=== PATIENT | male | born 1980 | race Caucasian/White ===

== ENCOUNTER 2016-04-30 11:20 | Inpatient (IN) | payer OTHER ==
[2016-04-30 11:59] VITALS: BMI 24.3
--- NOTE | 2016-04-30 12:58 | HP ---
Admission ROS [facility] Chief Complaint: REHAB TX FOR ALCOHOL,XANAX AND MARIJUANA DEPENDENCE Allergies/Adverse Reactions: Allergies Allergy/AdvReac Type Severity Reaction Status Date / Time Penicillins Allergy Severe Nausea Verified 04/30/16 13:14 shellfish derived Allergy Severe Nausea Verified 04/30/16 13:14 History of Present Illness: 35 Y/O H/M WITH A HX OF ALCOHOL, XANAX ,MARIJUANA DEPENDENCE SEEKING REHAB TX. PT WAS D/C'D FROM [facility] TODAY AND REFERRED TO AFTERCARE- REHAB. Exam Limitations: No Limitations - Ebola screening Have you traveled outside of the country in the last 21 days: No Have you had contact with anyone from an Ebola affected area: No Have you been sick,other than usual withdrawal symptoms: No Do you have a fever: No - Review of Systems Constitutional: Changes in sleep, Unintentional Wgt. Loss EENT: reports: No Symptoms Reported Respiratory: reports: No Symptoms reported Cardiac: reports: No Symptoms Reported GI: reports: No Symptoms Reported : reports: No Symptoms Reported Musculoskeletal: reports: No Symptoms Reported Integumentary: reports: No Symptoms Reported Neuro: reports: Numbness, Tingling Endocrine: reports: No Symptoms Reported Hematology: reports: No Symptoms Reported Psychiatric: reports: Orientated x3, Anxious, Depressed (BUT NOT DIAGNOSED YET. PT HAS A TALK THERAPY.) Other Systems: Reviewed and Negative Patient History - Patient Medical History Hx Anemia: No Hx Asthma: No Hx Chronic Obstructive Pulmonary Disease (COPD): No Hx Cardiac Disorders: Yes (HX CARDIAC MURMUR) Hx Hypertension: Yes (NONCOMPLIANT WITH MED..STOPPED X 10 YRS. TODAY AY=274/109( R); 168/102(L)) Hx Hypercholesterolemia: No HX Cerebrovascular Accident: No Hx Seizures: No Hx Diabetes: No Hx Gastrointestinal Disorders: No Hx Genitourinary Disorders: No Hx Sexually Transmitted Disorders: No Hx Renal Disease (ESRD): No Hx Thyroid Disease: No Hx Human Immunodeficiency Virus (HIV): No (NEGATIVE HX, LAST TAKEN ON 04/19/16) Hx Hepatitis C: No Hx Depression: Yes (NO MEDS; TALK THERAPY ONLY) Hx Suicide Attempt: No (DENIES) Hx Bipolar Disorder: No Hx Schizophrenia: No Other Medical History: UNABLE TO REMEMBER WHAT HE WAS TAKING FOR HTN. - Patient Surgical History Past Surgical History: Yes Hx Neurologic Surgery: No Hx Cataract Extraction: No Hx Cardiac Surgery: No Hx Lung Surgery: No Hx Breast Surgery: No Hx Breast Biopsy: No Hx Abdominal Surgery: No Hx Appendectomy: No Hx Cholecystectomy: No Hx Genitourinary Surgery: No Hx Orthopedic Surgery: No Other Surgical History: SX DUE TO LUMP ON NECK A CHILD;COLOSCOPY WITH POLYPECTOMY AT 22 YRS. Anesthesia Reaction: No - PPD History Previous Implant?: Yes Documented Results: Negative w/o proof Implanted On Prior [facility] Admission?: No PPD to be Administered?: Yes - Reproductive History Patient is a Female of Child Bearing Age (11 -55 yrs old): No (MALE) - Smoking Cessation Smoking history: Current every day smoker Have you smoked in the past 12 months: Yes Aproximately how many cigarettes per day: 6 Hx Chewing Tobacco Use: No Initiated information on smoking cessation: Yes 'Breaking Loose' booklet given: 04/30/16 - Substance & Tx. History Hx Alcohol Use: Yes (BEER) Hx Substance Use: Yes (XANAX) Substance Use Type: Alcohol, Marijuana, Tranquilizers Hx Substance Use Treatment: Yes - Substances Abused Alcohol Route: Oral Frequency: Daily Amount used: 1/2 PT/ 75 OZ Age of first use: 20 Date of Last Use: 04/26/16 Alprazolam (Xanax) Route: Oral Frequency: 3-6 times per week (2-3X/WEEK) Amount used: 2MG Age of first use: 33 Date of Last Use: 04/25/16 Marijuana/Hashish Route: Smoking Frequency: Daily Amount used: 7-8 BLUNTS Age of first use: 19 Date of Last Use: 04/26/16 Family Disease History - Family Disease History Family Disease History: Diabetes: Mother, Heart Disease: Grandparent (STROKE- LAST MONTH), Respiratory: Brother (ASTHMA), Other: Father (HTN) Other Family History: ALCOHOLISM IN THE EXTENDED RELATIVES Admission Physical Exam BHS - Vital Signs Vital Signs: Vital Signs - 24 hr 04/30/16 11:56 Temperature 98.3 F Pulse Rate 80 Respiratory 20 Rate Blood Pressure 168/102 - Physical General Appearance: Yes: No Apparent Distress, Anxious HEENTM: Yes: EOMI, Normocephalic, FREDDY, Pharynx Normal, Nasal Congestion, Rhinorrhea Respiratory: Yes: Chest Non-Tender, Lungs Clear, Normal Breath Sounds, No Respiratory Distress Neck: Yes: Supple, Trachea in good position Breast: Yes: Breast Exam Deferred Cardiology: Yes: Regular Rhythm, Regular Rate, S1, S2 (NO MURMUR NOTED) Abdominal: Yes: Normal Bowel Sounds, Non Tender, Soft Genitourinary: Yes: Other (N/C) Musculoskeletal: Yes: full range of Motion, Gait Steady Extremities: Yes: Normal Range of Motion, Non-Tender Neurological: Yes: 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 NML intact, Fully Oriented, Alert, Motor Strength 5/5 Integumentary: Yes: Dry, Warm Lymphatic: Yes: Within Normal Limits - Diagnostic (1) Alcohol dependence with uncomplicated withdrawal Current Visit: Yes Status: Chronic (2) Sedative, hypnotic or anxiolytic dependence with withdrawal, uncomplicated Current Visit: Yes Status: Chronic (3) Cannabis dependence, uncomplicated Current Visit: Yes Status: Chronic (4) Hypertension Current Visit: Yes Status: Chronic Qualifiers: Hypertension type: essential hypertension Qualified Code(s): I10 - Essential (primary) hypertension (5) Hx of cardiac murmur Current Visit: Yes Status: Suspected Cleared for Admission [facility] - Detox or Rehab Claeared for Rehab Admission: Yes [facility] Breath Alcohol Content Breath Alcohol Content: 0 Urine Drug Screen - Results Drug Screen Negative: No Urine Drug Screen Results: THC-Marijuana, BZO-Benzodiazepines
[2016-04-30] MEDS ORDERED: IBUPROFEN 400 MG TABLET (FP) PO PRN (13:25)
[2016-04-30] MEDS ORDERED: MAGNESIUM HYDROX 2400MG/30ML ORAL SUSPENSION 30 ML CUP PO PRN (13:25)
[2016-04-30] MEDS ORDERED: NICOTINE POLACRILEX 2 MG GUM BUC PRN (13:25)
[2016-04-30] MEDS ORDERED: MAG HYDROX/AL HYDROX/SIMETH 30 ML UNIT-DOSE CUP PO PRN (13:25)
[2016-04-30] MEDS ORDERED: P-EPHED 60MG/TRIPROLIDI 2.5MG TABLET PO PRN (13:25)
[2016-04-30] MEDS ORDERED: hydrOXYzine PAMOATE 25 MG CAPSULE (FP) PO PRN (13:25)
[2016-04-30] MEDS ORDERED: LOPERAMIDE HCL 2 MG CAPSULE PO PRN (13:25)
[2016-04-30] MEDS ORDERED: MAGNESIUM CITRATE 300 ML BOTTLE PO PRN (13:25)
[2016-04-30] MEDS ORDERED: MENTHOL/PHENOL 1 EACH UD MM PRN (13:25)
[2016-04-30] MEDS ORDERED: ACETAMINOPHEN 325 MG TABLET (FP) PO PRN (13:25)
[2016-04-30] MEDS ORDERED: guaiFENesin/D-METHORPHAN HB 10 ML UNIT-DOSE CUPS PO PRN (13:25)
[2016-04-30] MEDS ORDERED: TUBERCULIN PPD 5 TU/0.1ML VIAL ID ONE (16:57)
[2016-04-30] MEDS: HYDROCHLOROTHIAZIDE 25 MG TABLET (FP) PO SCH (16:58)
[2016-04-30 20:58] LABS: URINE APPEARANCE CLEAR; URINE BILIRUBIN NEGATIVE (NEGATIVE); URINE BLOOD NEGATIVE (NEGATIVE); URINE COLOR YELLOW; URINE GLUCOSE (UA) NEGATIVE (NEGATIVE); URINE KETONE NEGATIVE (NEGATIVE); URINE LEUK ESTERASE NEGATIVE (NEGATIVE); URINE NITRITE NEGATIVE (NEGATIVE); URINE PROTEIN NEGATIVE (NEGATIVE); URINE UROBILINOGEN NEGATIVE E.U./dl (0.2-1.0)
[2016-04-30] MEDS: THIAMINE HCL 100 MG TABLET (FP) PO SCH (22:01)
--- NOTE | 2016-05-01 09:34 | EKG ---
Test Reason : Blood Pressure : / mmHG Vent. Rate : 062 BPM Atrial Rate : 062 BPM P-R Int : 142 ms QRS Dur : 100 ms QT Int : 416 ms P-R-T Axes : -03 065 038 degrees QTc Int : 422 ms NORMAL SINUS RHYTHM WITH SINUS ARRHYTHMIA EARLY REPOLARIZATION NO PREVIOUS ECGS AVAILABLE Confirmed by SNOW WANG MD ([id number]) on 05/01/2016 9:33:49 AM Referred By: Confirmed By:SNOW WANG MD
[2016-05-01] MEDS: PRENATAL VITAMINS W/ FOLIC ACID TABLET (FP) PO SCH (09:40)
[2016-05-01] MEDS: NICOTINE 14 MG/24 HOURS TOPICAL PATCH TD SCH (09:40)
[2016-05-01] MEDS: ASPIRIN 81 MG CHEWABLE TABLETS PO SCH (09:40)
[2016-05-01] MEDS: HYDROCHLOROTHIAZIDE 25 MG TABLET (FP) PO SCH (09:40)
[2016-05-01 10:28] LABS: MCH 28.2 pg (25.7-33.7); MCHC 32.2 g/dl (32.0-35.9); MEAN CELL VOLUME 87.8 fl (80-96); PLATELET COUNT 237 K/MM3 (134-434); RDW 14.5 % (11.9-15.9)
[2016-05-01 11:49] LABS: SICKLE CELL SCREEN NEGATIVE (NEGATIVE)
[2016-05-01 12:06] LABS: ALBUMIN 4.1 g/dl (3.4-5.0); ALK PHOS 73 U/L (45-117); ANION GAP 11 (8-16); BILIRUBIN,TOTAL 0.5 mg/dL (0.2-1.0); CALCIUM 9.1 mg/dL (8.5-10.1); CO2 25 mmol/L (21-32); CREATININE 1.1 mg/dL (0.7-1.3); GLUCOSE,RANDOM 92 mg/dL (74-106); SGOT/AST 23 U/L (15-37); SGPT/ALT 27 U/L (12-78); TOT PROT 7.1 g/dl (6.4-8.2)
[2016-05-01] MEDS: THIAMINE HCL 100 MG TABLET (FP) PO SCH (21:35)
[2016-05-02] MEDS: ASPIRIN 81 MG CHEWABLE TABLETS PO SCH (09:41)
[2016-05-02] MEDS: NICOTINE 14 MG/24 HOURS TOPICAL PATCH TD SCH (09:41)
[2016-05-02] MEDS: HYDROCHLOROTHIAZIDE 25 MG TABLET (FP) PO SCH (09:41)
[2016-05-02] MEDS: PRENATAL VITAMINS W/ FOLIC ACID TABLET (FP) PO SCH (09:41)
[2016-05-02] MEDS: THIAMINE HCL 100 MG TABLET (FP) PO SCH (21:26)
[2016-05-03] MEDS: HYDROCHLOROTHIAZIDE 25 MG TABLET (FP) PO SCH (10:11)
[2016-05-03] MEDS: PRENATAL VITAMINS W/ FOLIC ACID TABLET (FP) PO SCH (10:11)
[2016-05-03] MEDS: NICOTINE 14 MG/24 HOURS TOPICAL PATCH TD SCH (10:11)
[2016-05-03] MEDS: ASPIRIN 81 MG CHEWABLE TABLETS PO SCH (10:11)
--- NOTE | 2016-05-03 14:01 | HP ---
Psychiatrist Admission - Data Date of interview: 05/03/16 Admission source: [facility] Identifying data: This is the first 5N inpatient rehabilitation admission for this 35 year old male father of 2, employed party plan sales host/hostess and residing in [place]. Medical History: hypertension, heart murmur and polypectomy at age 22, smoks cigarettes 4-6 daily Psychiatric History: patient reports was seen by a psychiatrist prior to his therapy, no mediations were recommended, states he had only a few session to address his adddiction. Physical/Sexual Abuse/Trauma History: denies history of sexual, physical and verbal abuse. Vital Signs: Vital Signs - 24 hr 05/03/16 05/03/16 05/03/16 00:30 03:26 07:53 Temperature 97.0 F L Pulse Rate 55 L Respiratory 16 16 18 Rate Blood Pressure 153/89 Allergies/Adverse Reactions: Allergies Allergy/AdvReac Type Severity Reaction Status Date / Time Penicillins Allergy Severe Nausea Verified 04/30/16 13:14 shellfish derived Allergy Severe Nausea Verified 04/30/16 13:14 Date of last physical exam: 04/30/16 Concur with the findings of this exam: Yes - Substance Abuse/Tx History Hx Alcohol Use: Yes (75 oz beer dailky, 1/2 pint of vodka daily ) Hx Substance Use: Yes Substance Use Type: Marijuana (daily use), Tranquilizers (xanax 2 mg 2-3 times a week) Hx Substance Use Treatment: No (first rehabilitation treatment) - Admission Criteria Previous failed treatment: No Poor recovery environment: Yes Comorbidities: Yes Lacks judgement: Yes Mental Status Exam - Mental Status Exam Cognitive Function: Fair Patient Appearance: Well Groomed Mood: Hopeful Affect: Appropriate Patient Behavior: Appropriate, Cooperative Speech Pattern: Clear, Appropriate Voice Loudness: Normal Thought Process: Intact, Goal Oriented Hallucinations: None Suicidal Ideation: Denies Homicidal Ideation: Denies Insight/Judgement: Fair Sleep: Fair Appetite: Fair Muscle strength/Tone: Normal Gait/Station: Normal Psychiatric Findings - Problem List ([place] 1, 2,3) (1) Alcohol dependence Current Visit: Yes Status: Acute (2) Cannabis dependence Current Visit: Yes Status: Acute (3) Nicotine dependence Current Visit: Yes Status: Acute (4) Sedative hypnotic or anxiolytic dependence Current Visit: Yes Status: Acute - Initial Treatment Plan Initial Treatment Plan: will monitor progress as needed.
[2016-05-03] MEDS: THIAMINE HCL 100 MG TABLET (FP) PO SCH (21:21)
[2016-05-04] MEDS: PRENATAL VITAMINS W/ FOLIC ACID TABLET (FP) PO SCH (10:25)
[2016-05-04] MEDS: NICOTINE 14 MG/24 HOURS TOPICAL PATCH TD SCH (10:26)
[2016-05-04] MEDS: ASPIRIN 81 MG CHEWABLE TABLETS PO SCH (10:26)
[2016-05-04] MEDS: HYDROCHLOROTHIAZIDE 25 MG TABLET (FP) PO SCH (10:26)
[2016-05-04] MEDS: THIAMINE HCL 100 MG TABLET (FP) PO SCH (21:18)
[2016-05-04] MEDS: diphenhydrAMINE HCL 50 MG CAPSULE PO PRN (21:18)
[2016-05-05] MEDS: HYDROCHLOROTHIAZIDE 25 MG TABLET (FP) PO SCH (10:15)
[2016-05-05] MEDS: ASPIRIN 81 MG CHEWABLE TABLETS PO SCH (10:15)
[2016-05-05] MEDS: NICOTINE 14 MG/24 HOURS TOPICAL PATCH TD SCH (10:15)
[2016-05-05] MEDS: PRENATAL VITAMINS W/ FOLIC ACID TABLET (FP) PO SCH (10:15)
[2016-05-05] MEDS ORDERED: amLODIPine BESYLATE 2.5 MG TABLET (FP) PO ONE (16:05)
[2016-05-05] MEDS: THIAMINE HCL 100 MG TABLET (FP) PO SCH (21:30)
[2016-05-06] MEDS: PRENATAL VITAMINS W/ FOLIC ACID TABLET (FP) PO SCH (10:03)
[2016-05-06] MEDS: amLODIPine BESYLATE 2.5 MG TABLET (FP) PO SCH (10:03)
[2016-05-06] MEDS: HYDROCHLOROTHIAZIDE 25 MG TABLET (FP) PO SCH (10:03)
[2016-05-06] MEDS: ASPIRIN 81 MG CHEWABLE TABLETS PO SCH (10:03)
[2016-05-06] MEDS: NICOTINE 14 MG/24 HOURS TOPICAL PATCH TD SCH (10:04)
[2016-05-06] MEDS: THIAMINE HCL 100 MG TABLET (FP) PO SCH (21:36)
[2016-05-06] MEDS: diphenhydrAMINE HCL 50 MG CAPSULE PO PRN (21:36)
[2016-05-07] MEDS: ASPIRIN 81 MG CHEWABLE TABLETS PO SCH (10:08)
[2016-05-07] MEDS: HYDROCHLOROTHIAZIDE 25 MG TABLET (FP) PO SCH (10:08)
[2016-05-07] MEDS: NICOTINE 14 MG/24 HOURS TOPICAL PATCH TD SCH (10:08)
[2016-05-07] MEDS: PRENATAL VITAMINS W/ FOLIC ACID TABLET (FP) PO SCH (10:08)
[2016-05-07] MEDS: amLODIPine BESYLATE 2.5 MG TABLET (FP) PO SCH (10:08)
[2016-05-07] MEDS: THIAMINE HCL 100 MG TABLET (FP) PO SCH (21:23)
[2016-05-07] MEDS: diphenhydrAMINE HCL 50 MG CAPSULE PO PRN (21:24)
[2016-05-08] MEDS: HYDROCHLOROTHIAZIDE 25 MG TABLET (FP) PO SCH (09:49)
[2016-05-08] MEDS: ASPIRIN 81 MG CHEWABLE TABLETS PO SCH (09:49)
[2016-05-08] MEDS: amLODIPine BESYLATE 5 MG TABLET (FP) PO SCH (09:50)
[2016-05-08] MEDS: NICOTINE 14 MG/24 HOURS TOPICAL PATCH TD SCH (09:50)
[2016-05-08] MEDS: PRENATAL VITAMINS W/ FOLIC ACID TABLET (FP) PO SCH (10:26)
[2016-05-08] MEDS: THIAMINE HCL 100 MG TABLET (FP) PO SCH (21:27)
[2016-05-08] MEDS: diphenhydrAMINE HCL 50 MG CAPSULE PO PRN (21:28)
[2016-05-09] MEDS: NICOTINE 14 MG/24 HOURS TOPICAL PATCH TD SCH (10:18)
[2016-05-09] MEDS: amLODIPine BESYLATE 5 MG TABLET (FP) PO SCH (10:18)
[2016-05-09] MEDS: PRENATAL VITAMINS W/ FOLIC ACID TABLET (FP) PO SCH (10:18)
[2016-05-09] MEDS: ASPIRIN 81 MG CHEWABLE TABLETS PO SCH (10:18)
[2016-05-09] MEDS: HYDROCHLOROTHIAZIDE 25 MG TABLET (FP) PO SCH (10:18)
[2016-05-09] MEDS: THIAMINE HCL 100 MG TABLET (FP) PO SCH (21:16)
[2016-05-09] MEDS: diphenhydrAMINE HCL 50 MG CAPSULE PO PRN (21:16)
[2016-05-10] MEDS: ASPIRIN 81 MG CHEWABLE TABLETS PO SCH (09:06)
[2016-05-10] MEDS: NICOTINE 14 MG/24 HOURS TOPICAL PATCH TD SCH (09:06)
[2016-05-10] MEDS: amLODIPine BESYLATE 5 MG TABLET (FP) PO SCH (09:06)
[2016-05-10] MEDS: HYDROCHLOROTHIAZIDE 25 MG TABLET (FP) PO SCH (09:06)
[2016-05-10] MEDS: PRENATAL VITAMINS W/ FOLIC ACID TABLET (FP) PO SCH (09:06)
--- NOTE | 2016-05-10 12:56 | PN ---
S Progress Note Note: HTN Vital Signs Temperature 98.1 F 05/10/16 06:57 Pulse Rate 68 05/10/16 11:03 Respiratory Rate 18 05/10/16 11:03 Blood Pressure 151/93 05/10/16 11:03 O2 Sat by Pulse Oximetry (%) WILL INCREASE TO 10 MGS PO DAILY,BP MONITORING
[2016-05-10] MEDS: THIAMINE HCL 100 MG TABLET (FP) PO SCH (21:21)
[2016-05-10] MEDS: diphenhydrAMINE HCL 50 MG CAPSULE PO PRN (21:21)
[2016-05-11] MEDS: PRENATAL VITAMINS W/ FOLIC ACID TABLET (FP) PO SCH (10:08)
[2016-05-11] MEDS: ASPIRIN 81 MG CHEWABLE TABLETS PO SCH (10:08)
[2016-05-11] MEDS: NICOTINE 14 MG/24 HOURS TOPICAL PATCH TD SCH (10:08)
[2016-05-11] MEDS: HYDROCHLOROTHIAZIDE 25 MG TABLET (FP) PO SCH (10:08)
[2016-05-11] MEDS: amLODIPine BESYLATE 10 MG TABLET (FP) PO SCH (10:08)
[2016-05-11] MEDS: diphenhydrAMINE HCL 50 MG CAPSULE PO PRN (21:37)
[2016-05-11] MEDS: THIAMINE HCL 100 MG TABLET (FP) PO SCH (21:37)
[2016-05-12] MEDS: PRENATAL VITAMINS W/ FOLIC ACID TABLET (FP) PO SCH (10:11)
[2016-05-12] MEDS: amLODIPine BESYLATE 10 MG TABLET (FP) PO SCH (10:11)
[2016-05-12] MEDS: ASPIRIN 81 MG CHEWABLE TABLETS PO SCH (10:11)
[2016-05-12] MEDS: HYDROCHLOROTHIAZIDE 25 MG TABLET (FP) PO SCH (10:11)
[2016-05-12] MEDS: NICOTINE 14 MG/24 HOURS TOPICAL PATCH TD SCH (10:12)
[2016-05-12] MEDS: diphenhydrAMINE HCL 50 MG CAPSULE PO PRN (21:26)
[2016-05-12] MEDS: THIAMINE HCL 100 MG TABLET (FP) PO SCH (21:26)
[2016-05-13] MEDS: amLODIPine BESYLATE 10 MG TABLET (FP) PO SCH (09:37)
[2016-05-13] MEDS: ASPIRIN 81 MG CHEWABLE TABLETS PO SCH (09:37)
[2016-05-13] MEDS: PRENATAL VITAMINS W/ FOLIC ACID TABLET (FP) PO SCH (09:37)
[2016-05-13] MEDS: HYDROCHLOROTHIAZIDE 25 MG TABLET (FP) PO SCH (09:37)
[2016-05-13] MEDS: NICOTINE 14 MG/24 HOURS TOPICAL PATCH TD SCH (09:37)
[2016-05-13] MEDS: THIAMINE HCL 100 MG TABLET (FP) PO SCH (21:16)
[2016-05-13] MEDS: diphenhydrAMINE HCL 50 MG CAPSULE PO PRN (21:17)
[2016-05-14 07:03] VITALS: BP 137/76; PULSE 67; TEMP 97.9
--- NOTE | 2016-05-14 08:25 | PN ---
Psychiatric Progress Note Vital Signs: Vital Signs Period Temp Pulse Resp BP Sys/Jacob Pulse Ox Last 24 Hr 97.9 F 67-70 16-18 137-159/76-92 Date of Session: 05/14/16 Chief Complaint:: discharge visit HPI: Patient has addressed alcohol, sedative-hypnotic,cannabis, nicotine dependence. ROS: hypertension medically managed, heart murmur and polypectomy at age 22. Current Medications: Active Medications Generic Name Dose Route Start Last Admin Trade Name Freq PRN Reason Stop Dose Admin Acetaminophen 650 mg 04/30/16 13:25 Tylenol - PO Q4H PRN PAIN Al Hydroxide/Mg Hydroxide 30 ml 04/30/16 13:25 Mylanta Oral Suspension - PO Q6H PRN DYSPEPSIA Amlodipine Besylate 10 mg 05/11/16 10:00 05/13/16 09:37 Norvasc - PO 10 mg DAILY KIMBERLY Administration Aspirin 81 mg 05/01/16 10:00 05/13/16 09:37 Asa - PO 81 mg DAILY KIMBERLY Administration Diphenhydramine HCl 50 mg 04/30/16 13:25 05/13/16 21:17 Benadryl - PO 50 mg HSMR1 PRN Administration INSOMNIA Eucalyptus/Menthol/Phenol/Sorbitol 1 each 04/30/16 13:25 Cepastat Lozenge - MM Q4H PRN SORE THROAT Guaifenesin 10 ml 04/30/16 13:25 Robitussin Dm - PO Q6H PRN COUGH Hydrochlorothiazide 25 mg 04/30/16 15:05 05/13/16 09:37 Hctz - PO 25 mg DAILY KIMBERLY Administration Hydroxyzine Pamoate 25 mg 04/30/16 13:25 Vistaril - PO Q4H PRN AGITATION Loperamide HCl 4 mg 04/30/16 13:25 Imodium - PO Q6H PRN DIARRHEA Magnesium Citrate 300 ml 04/30/16 13:25 Citroma - PO Q48H PRN CONSTIPATION Magnesium Hydroxide 30 ml 04/30/16 13:25 Milk Of Magnesia - PO DAILY PRN CONSTIPATION Nicotine 14 mg 05/01/16 10:00 05/13/16 09:37 Nicoderm Patch - TD Not Given DAILY KIMBERLY Nicotine Polacrilex 2 mg 04/30/16 13:25 Nicorette Gum - BUC Q2H PRN NICOTINE REPLACEMENT RX Multivit/Folic Acid/Iron 1 tab 05/01/16 10:00 05/13/16 09:37 Vitamins (Sj[facility]) - PO 1 tab DAILY KIMBERLY Administration Pseudoephedrine/Triprolidine 1 combo 04/30/16 13:25 Actifed - PO TID PRN NASAL CONGESTION Thiamine HCl 100 mg 04/30/16 22:00 05/13/16 21:16 Vitamin B1 - PO 100 mg HS KIMBERLY Administration Current Side Effect: No Lab tests ordered: No Lab tests reviewed: Yes Provider note:: Patient has completed today this treatment and met his goals, will continue to address his issues at [facility] outpatient treatment program. He gained insights into importance of changing attitudes for the utlization of supports to prevent relapses. Patient verbalizaed his resolution to stay clean and adherent to his aftercare plans. Patient is stable for discharge. Total face to face time:: 30 Mental Status Exam - Mental Status Exam Alert and Oriented to: Time, Place, Person Cognitive Function: Good Patient Appearance: Well Groomed Mood: Hopeful Affect: Appropriate, Mood Congruent Patient Behavior: Appropriate, Cooperative Speech Pattern: Clear, Appropriate Voice Loudness: Normal Thought Process: Intact Thought Disorder: Not Present Hallucinations: Denies Suicidal Ideation: Denies Homicidal Ideation: Denies Insight/Judgement: Fair Sleep: Fair Appetite: Good Muscle strength/Tone: Normal Gait/Station: Normal Psychiatric Treatment Plan - Problem List (1) Alcohol dependence Current Visit: Yes (2) Cannabis dependence Current Visit: Yes (3) Nicotine dependence Current Visit: Yes (4) Sedative hypnotic or anxiolytic dependence Current Visit: Yes
[2016-05-14] MEDS: NICOTINE 14 MG/24 HOURS TOPICAL PATCH TD SCH (09:46)
[2016-05-14] MEDS: ASPIRIN 81 MG CHEWABLE TABLETS PO SCH (09:46)
[2016-05-14] MEDS: amLODIPine BESYLATE 10 MG TABLET (FP) PO SCH (09:46)
[2016-05-14] MEDS: PRENATAL VITAMINS W/ FOLIC ACID TABLET (FP) PO SCH (09:46)
[2016-05-14] MEDS: HYDROCHLOROTHIAZIDE 25 MG TABLET (FP) PO SCH (09:46)
== END 2016-05-14 10:35 | disposition home or self-care (01) | DRG 772 ==
LOC: YASAS 11:20 → Y5N 14:50
PROVIDERS: ADMIT Psychiatry & Neurology Psychiatry; ATTEND Psychiatry & Neurology Psychiatry
PROC: HZ42ZZZ Group Counseling for Substance Abuse Treatment, Cognitive-Behavioral (ICD-10-PCS; principal; 2016-05-14)
DX: F13.20 Sedative, hypnotic or anxiolytic dependence, uncomplicated (principal); F10.20 Alcohol dependence, uncomplicated; F12.20 Cannabis dependence, uncomplicated; F17.210 Nicotine dependence, cigarettes, uncomplicated
CPT/HCPCS: 36415; 80053; 81003; 85027; 85660; 86593; 93005; 93010